=== PATIENT | female | born 1965 | race Caucasian/White ===

== ENCOUNTER 2017-12-16 17:49 | Emergency (ER) | payer BC ==
[~2017-12-16 17:49] MED LIST: ACET-1966 PO; AMOX-559 PO; ASPI-1441 PO; BISM262T88 PO; CETI-434 PO; CITA-128 PO; CITA-156 PO; CYC10 PO; CYCL10TA29 PO; DOXY150T6 PO; FLUO-202 PO; FLUO20TA2 PO; FLUT16SP19 NS; GABA-549 PO; HYDR-4225 PO; HYDR-4240 PO; IBU600 PO; IBUP600T22 PO; LIDO700A29 TD; LOPE-84 PO; LOPE-95 PO; LOR5/325 PO; MULT1CAP41 PO; NAPR-1043 PO; OFF COUMADIN; OMEG-11 PO; OMEG500C7 PO; OND4 PO; OXYC-865 PO; PEN250 PO; PER PO; POTA25TA6 PO; PROM5SYR PO; RANI-318 PO; TRAM-420 PO; TRAM100T8 PO; TRAZ-133 PO; TRAZ-156 PO; VALA100062 PO; VERA120T71 PO; WARF-12 PO; WARF2.5T4 PO; WARF5TAB23 PO; [UNRECOGNIZED DRUG - OTHER] PO; [UNRECOGNIZED DRUG - OTHER] PO
--- NOTE | 2017-12-16 18:07 | ER Report ---
History and Physical Time Seen By MD: 18:06 Hx. of Stated Complaint: pt reports cough/cold for 2 weeks. pt reports loss of voice today HPI/ROS CHIEF COMPLAINT: cough and congestion HISTORY OF PRESENT ILLNESS: This is a 51 year old female. She has had cough for a couple of weeks. Now with increasing congestion and losing her voice. She has some muscular pain with the cough, but otherwise no chest pain. She is not short of breath. No fevers. Cough is nonproductive. She has been using some mucinex. Poor appetite, but drinking fluids. Normal urination. Has had some diarrhea. No history of lung problems in the past. Allergies: Coded Allergies: copper (Verified Allergy, Intermediate, SEVER SKIN IRRITATION, 12/16/17) Home Meds Active Scripts Guaifenesin/Codeine (GUAIFENESIN-CODEINE SYRUP) 5 Ml Syrp, 5 ML PO Q6H Y for COUGH, #120 ML 0 Refills Prov:JOSUE ANDREW MD 12/16/17 Lidocaine (LIDODERM) 700 Mg Adh..patch, 1-3 PATCH TD QDAY, #1 BOX Prov:ROHAN BUSTILLOS [facility] 05/05/16 Fluticasone Prop 50 Mcg Ns (FLONASE 50 MCG NS) 16 Gm [place].susp, 1 SPRAY NS BID , #1 BOT Prov:ROHAN BUSTILLOS [facility] 08/26/15 Reported Medications Acetaminophen (TYLENOL) 325 Mg Tablet, 325 MG PO BID, TAB 08/17/16 Tramadol Hcl (TRAMADOL HCL) 100 Mg Tab.er.24h, 100 MG PO BID, TAB 08/17/16 [place]-3 Fatty Acids (FISH OIL) 500 Mg Capsule, 500 MG PO QDAY, CAPSULE 08/17/16 Warfarin Sodium (WARFARIN SODIUM) 5 Mg Tablet, 10 MG PO QDAY, TAB 08/17/16 Ranitidine Hcl (RANITIDINE HCL) 150 Mg Tablet, 150 MG PO BID 05/07/14 Hydroxyzine Hcl (HYDROXYZINE HCL) 25 Mg Tablet, 25 MG PO TID 05/07/14 Fluoxetine Hcl (PROZAC) 20 Mg Capsule, 60 MG PO QDAY, CAPSULE 05/07/14 Verapamil Hcl (Verapamil Er) 120 Mg Tablet.er, 120 MG PO BID, 0 Refills 08/05/11 Reviewed Nurses Notes: Yes Hx Smoking: Yes (1 PPD X 36 YRS ) Smoking Status: Current: Every Day Smoker Exposure to Second Hand Smoke?: Yes Hx Substance Use Disorder: No Hx Alcohol Use: No Constitutional Vital Sign - Last 24 Hours 12/16/17 12/16/17 12/16/17 12/16/17 17:53 17:54 17:54 17:59 Temp 97.8 Pulse 80 80 78 Resp 16 B/P (MAP) 150/88 (108) 150/85 Pulse Ox 94 93 93 O2 Delivery Room Air 12/16/17 12/16/17 12/16/17 12/16/17 18:00 18:05 18:10 18:25 Pulse 86 77 75 B/P (MAP) 142/70 (94) Pulse Ox 93 93 93 12/16/17 12/16/17 12/16/17 12/16/17 18:30 18:40 18:55 19:00 Pulse 75 73 B/P (MAP) 121/55 (77) 132/90 (104) Pulse Ox 94 95 12/16/17 12/16/17 19:10 19:26 Pulse 84 85 Resp 16 B/P (MAP) 132/90 (104) Pulse Ox 96 92 O2 Delivery Room Air Physical Exam General Appearance: The patient is alert. No acute distress. Eyes: Pupils are equal, round. No pallor, injection or icterus. ENT: Mucous membranes are moist. Normal oral mucosa. Posterior oropharynx with mild erythema, but no exudates, hypertrophy or ulcers. Normal tympanic membranes and canals. Respiratory: Lungs with rhonchi, but no rales or wheezing. Cardiovascular: Regular rate and rhythm. No murmurs, gallops or rubs. Normal capillary refill. Gastrointestinal: Abdomen is soft and non tender. Nondistended. Normal active bowel sounds. Neurological: Alert and oriented x3. Skin: Warm and dry. DIFFERENTIAL DIAGNOSIS: After history and physical exam, differential diagnosis was considered for patient with cough and congestion, likely viral syndrome such as influenza or other virus but will also rule out pneumonia. Medical Decision Making Data Points Laboratory Hematology Test 12/16/17 18:15 Influenza Virus Type A (PCR) Negative (NEGATIVE) Influenza Virus Type B (PCR) Negative (NEGATIVE) Chemistry Test 12/16/17 18:15 Influenza Virus Type A (PCR) Negative (NEGATIVE) Influenza Virus Type B (PCR) Negative (NEGATIVE) EKG/Imaging Imaging EXAMINATION: Chest 2 Views HISTORY: Cough and congestion. COMPARISON: 08/26/2015. FINDINGS: The lungs are clear. No focal consolidation or pleural fluid. No pneumothorax. Normal cardiomediastinal silhouette, with normal heart size and pulmonary vascularity. Visualized osseous structures are unremarkable. Cholecystectomy clips in the right upper abdomen. IMPRESSION: No evidence of acute cardiopulmonary disease. Report Dictated By: Bebeto Christensen MD at 12/16/2017 6:33 PM ED Course/Re-evaluation ED Course Chest x-ray negative. Influenza negative. Appears to be a viral upper respiratory infection. Conservative management reviewed with the patient. Did provide guaifenesin with Codeine for cough. Decision to Disposition Date: Dec 16, 2017 Decision to Disposition Time: 19:22 Depart Departure Latest Vital Signs Vital Signs Date Time Temp Pulse Resp B/P (MAP) Pulse Ox O2 Delivery O2 Flow Rate FiO2 12/16/17 19:26 85 16 132/90 (104) 92 Room Air 12/16/17 17:54 97.8 Impression: Primary Impression: Upper respiratory infection Condition: Improved Disposition: HOME OR SELF-CARE New Scripts Guaifenesin/Codeine (GUAIFENESIN-CODEINE SYRUP) 5 Ml Syrp 5 ML PO Q6H Y for COUGH, #120 ML 0 Refills Prov: JOSUE ANDREW MD 12/16/17 Patient Instructions: Upper Respiratory Infection (ED) Additional Instructions: Rest and increase fluid intake. Take Guaifenesin with Codeine cough syrup, 1 teaspoon every 6 hours as needed for cough. Problem Qualifiers Primary Impression: Upper respiratory infection URI type: unspecified viral URI Qualified Codes: J06.9 - Acute upper respiratory infection, unspecified JOSUE ANDREW MD Dec 16, 2017 18:07
--- NOTE | 2017-12-16 18:38 | RADIOLOGY IMAGING REPORT ---
FACILITY: [facility] [place] PATIENT NAME: Trinh Soliz : 1965 MR: [id number] V: [id number] EXAM DATE: ORDERING PHYSICIAN: JOSUE ANDREW TECHNOLOGIST: Location: [facility] Patient: Trinh Soliz : 1965 Visit/Account:[id number] Date of Sevice: 12/16/2017 EXAMINATION: Chest 2 Views HISTORY: Cough and congestion. COMPARISON: 08/26/2015. FINDINGS: The lungs are clear. No focal consolidation or pleural fluid. No pneumothorax. Normal cardiomedias tinal silhouette, with normal heart size and pulmonary vascularity. Visualized osseous structures ar e unremarkable. Cholecystectomy clips in the right upper abdomen. IMPRESSION: No evidence of acute cardiopulmonary disease. Report Dictated By: Bebeto Christensen MD at 12/16/2017 6:33 PM Report E-Signed By: Bebeto Christensen MD at 12/16/2017 6:33 PM WSN:[id number]
[2017-12-16] MEDS ORDERED: ROBC PO (19:24)
[2017-12-16] MEDS ORDERED: guaiFENesin/CODEINE 5 ML UDBTL PO ONE (19:25)
[2017-12-16 19:26] VITALS: BP 132/90
== END 2017-12-16 19:27 | disposition home or self-care (01) ==
LOC: ER 18:02
DX: J06.9 Acute upper respiratory infection, unspecified (principal)
CPT/HCPCS: 71046; 87502; 99284

== ENCOUNTER 2019-03-05 20:13 | Emergency (ER) | payer BC ==
[~2019-03-05 20:13] MED LIST changes: +ROBC PO; -TRAZ-156 PO; +TRAZ50TA52 PO
[2019-03-05] MEDS ORDERED: NEOMYC/POLYMY/HYDROC OTIC SUSP LEFT EAR ONE (20:35)
[2019-03-05] MEDS ORDERED: APAP/HYDROCODONE 325/5 TAB PO ONE (20:35)
--- NOTE | 2019-03-05 20:38 | ER Report ---
History and Physical Time Seen By MD: 20:12 Hx. of Stated Complaint: LEFT EAR PAIN THAT STRATED THIS AM AND HAS NOT GOTTEN BETTER HPI/ROS CHIEF COMPLAINT: Ear pain HISTORY OF PRESENT ILLNESS: Patient awoke with ear pain and muffled hearing. She had no symptoms last night. She states that has been ongoing during the day without relief. She states that she has had no discharge. She has had no prior ear surgeries. No recent swimming or travel. No ringing in the ears. No vertigo. No neck pain, difficulty swallowing, chest pain, trouble breathing. She reports that she uses a Q-tip every day after she gets out of the shower but is not aware of any recent trauma. REVIEW OF SYSTEMS: Respiratory: No cough, no dyspnea. Cardiovascular: No chest pain, no palpitations. Gastrointestinal: No vomiting, no abdominal pain. Musculoskeletal: No back pain. Remainder of the 14 system rev: Yes Allergies: Coded Allergies: copper (Verified Allergy, Intermediate, SEVER SKIN IRRITATION, 12/16/17) Home Meds Active Scripts Amoxicillin (AMOXICILLIN) 875 Mg Tablet, 1 TAB PO Q8H, #21 TAB Prov:JOHNATHAN NIXON MD 03/05/19 Guaifenesin/Codeine (GUAIFENESIN-CODEINE SYRUP) 5 Ml Syrp, 5 ML PO Q6H PRN for COUGH, #120 ML 0 Refills Prov:JOSUE ANDREW MD 12/16/17 Lidocaine (LIDODERM) 700 Mg Adh..patch, 1-3 PATCH TD QDAY, #1 BOX Prov:ROHAN BUSTILLOS [facility] 05/05/16 Fluticasone Prop 50 Mcg Ns (FLONASE 50 MCG NS) 16 Gm [place].susp, 1 SPRAY NS BID, #1 BOT Prov:ROHAN BUSTILLOS [facility] 08/26/15 Reported Medications Acetaminophen (TYLENOL) 325 Mg Tablet, 325 MG PO BID, TAB 08/17/16 Tramadol Hcl (TRAMADOL HCL) 100 Mg Tab.er.24h, 100 MG PO BID, TAB 08/17/16 [place]-3 Fatty Acids (FISH OIL) 500 Mg Capsule, 500 MG PO QDAY, CAPSULE 08/17/16 Warfarin Sodium (WARFARIN SODIUM) 5 Mg Tablet, 10 MG PO QDAY, TAB 08/17/16 Ranitidine Hcl (RANITIDINE HCL) 150 Mg Tablet, 150 MG PO BID 05/07/14 Hydroxyzine Hcl (HYDROXYZINE HCL) 25 Mg Tablet, 25 MG PO TID 05/07/14 Fluoxetine Hcl (PROZAC) 20 Mg Capsule, 60 MG PO QDAY, CAPSULE 05/07/14 Verapamil Hcl (Verapamil Er) 120 Mg Tablet.er, 120 MG PO BID, 0 Refills 08/05/11 Reviewed Nurses Notes: Yes Hx Smoking: Yes (1 PPD X 36 YRS ) Smoking Status: Current: Every Day Smoker Exposure to Second Hand Smoke?: Yes Hx Substance Use Disorder: No Hx Alcohol Use: No Constitutional Vital Sign - Last 24 Hours 03/05/19 03/05/19 03/05/19 03/05/19 20:15 20:19 20:30 20:43 Temp 98.7 Pulse 88 74 Resp 18 B/P (MAP) 138/83 (101) 138/83 127/60 (82) Pulse Ox 94 93 O2 Delivery Room Air 03/05/19 03/05/19 21:00 21:13 Pulse 80 B/P (MAP) 109/59 (76) Pulse Ox 92 Physical Exam General Appearance: The patient is alert, has no immediate need for airway protection and no current signs of toxicity. Eyes: Pupils equal and round no injection. TM - right; occlued with wax left - occlused with wax; when attempting to remove wax, pt has sig amt of bleeding post to wax. TM - No mastoid ttp. Respiratory: lungs ctab Cardiac: regular rate and rhythm Musculoskeletal: Neck: Neck is supple and non tender. Skin: No rashes or lesions. DIFFERENTIAL DIAGNOSIS: After history and physical exam differential diagnosis was considered for perforated tm, otitis media, otitix extrerna, foreign body, or other emergent etiology. Medical Decision Making ED Course/Re-evaluation ED Course 53 f has sig otitis externa; cannot r/o otitis media/perforation. Topica/oral abx admin, f/u with pcm/ent, SRP's. Decision to Disposition Date: Mar 05, 2019 Decision to Disposition Time: 21:25 Depart Departure Latest Vital Signs Vital Signs Date Time Temp Pulse Resp B/P (MAP) Pulse Ox O2 Delivery O2 Flow Rate FiO2 03/05/19 21:13 80 92 03/05/19 21:00 109/59 (76) 03/05/19 20:19 98.7 18 Room Air Impression: Primary Impression: Otitis externa Additional Impression: Otitis media Condition: Improved Disposition: HOME OR SELF-CARE Referrals: MICHELL INIGUEZ JR, MD 5 Days New Scripts Amoxicillin (AMOXICILLIN) 875 Mg Tablet 1 TAB PO Q8H, #21 TAB Prov: JOHNATHAN NIXON MD 03/05/19 Patient Instructions: Otitis Externa (ED), Otitis Media (ED) Additional Instructions: As we discussed, use both drops and antibiotics as prescribed; apply 4 drops in left ear 4 times daily. You may also use ibuprofen 600mg every 8 hours as needed for pain. Follow up with Dr. Iniguez to ensure resolution of infection> Return to ED for worsening symptoms, uncontrolled pain, or any concerns. Problem Qualifiers Primary Impression: Otitis externa Otitis externa type: unspecified type Chronicity: acute Laterality: left Qualified Codes: H60.502 - Unspecified acute noninfective otitis externa, left ear Additional Impression: Otitis media Otitis media type: suppurative Chronicity: acute Laterality: left Recurrence: non-recurrent Spontaneous tympanic membrane rupture: with sp ontaneous rupture Qualified Codes: H66.012 - Acute suppurative otitis media with spontaneous rupture of ear drum, left ear JOHNATHAN NIXON MD Mar 05, 2019 20:38
[2019-03-05 21:00] VITALS: BP 109/59
[2019-03-05] MEDS ORDERED: ACET/HYDROC 5/325MG TH ER ONLY 2 TAB/BOTTLE PO ONE (21:20)
[2019-03-05] MEDS ORDERED: AMOXICILLIN 875 MG TAB PO ONE (21:20)
[2019-03-05] MEDS ORDERED: AMOX875T60 PO (21:23)
== END 2019-03-05 21:29 | disposition home or self-care (01) ==
LOC: ER 20:37
DX: H60.502 Unspecified acute noninfective otitis externa, left ear (principal); H66.012 Acute suppurative otitis media with spontaneous rupture of ear drum, left ear
CPT/HCPCS: 99283